=== PATIENT | male | born 2005 | race Caucasian/White ===

== ENCOUNTER 2024-06-12 16:10 | Emergency (ER) | payer BC, SELFPAY ==
[2024-06-12 16:17] VITALS: BP 132/90
--- NOTE | 2024-06-12 17:06 | ED.GENMED ---
History of Present Illness
General
Chief Complaint: Musculo-Skeletal Complaint
Source: patient
Exam Limitations: none
Time Seen by Provider: 06/12/24 16:58
Nursing documentation reviewed up to this point in time: agreed with
History of Present Illness
History of Present Illness:
Patient is a 18-year-old [id number] male who presents to the emergency department complaining of pain and swelling in his right hand and fingers especially the middle, ring and fifth finger. Patient denies any numbness or paresthesias.
Patient has difficulty moving them secondary to pain. Tetanus is up-to-date.
Past History
Past History
ED Past Medical History: Other (ERICH + panic disorder )
ED Past Surgical History: None
Social History
Tobacco: Former smoker
Alcohol: Occasional
Drug: None
Personal: Single
Living: with family
Review of Systems
Review of Systems
All Other Systems: Not applicable
Phy Exam
Physical Exam
Physical Exam:
Physical Exam
General: mild distress, alert and appropriate, well nourished, well hydrated
HENT: Normocephalic, supple
Eyes: Clear sclera, conjuctiva without injection
Neuro: Alert and oriented x 3, CN II - XII intact, no motor focality, no cerebellar dysfunction
Skin: no rash. Abrasion of the fifth, fourth and middle fingers on the right. In the area of the fractures but do not appear to communicate with the fractures.
Psychiatric: well kept. interactive and cooperative
Extremities: No cyanosis. Tenderness with swelling and ecchymosis of the right hand from the second to the fifth MCPs as well as the third, fourth and fifth fingers. Neurovascularly and tendons intact.
Scores
Heart Failure Risk
Heart Failure Risk Score: Not Applicable
Heart Score for Chest Pain Patients
STEMI patient?: Not applicable
Withdrawal Assessment of Alcohol
Withdrawal Assessment Completed?: Not applicable
Course
Orders/Labs/Results
Orders:
Orders
06/12/24 16:16
Hand, Right 3 View [CR Hand - Right Min 3 Views] Urgent
Comment:
Reason For Exam: pain
06/12/24 17:10
Splints/Slings/Crut- Treatment ONCE
Sling to: Right Arm
Location: Right
Type of Splint: Volar
Cephalexin Monohydrate [Keflex] 500 mg PO NOW STA
Oxycodone/Acetaminophen [Percocet 5/325] 1 tablet PO NOW STA
Vital Signs
Initial and Last Documented VS:
Initial Vital Signs
Temp Pulse Resp BP Pulse Ox
98.8 F 97 16 132/90 97
06/12/24 16:17 06/12/24 16:17 06/12/24 16:17 06/12/24 16:17 06/12/24 16:17
Last Documented Vital Signs
Temp Pulse Resp BP Pulse Ox
98.8 F 97 16 132/90 97
06/12/24 16:17 06/12/24 16:17 06/12/24 16:17 06/12/24 16:17 06/12/24 16:17
*Radiology
Radiology exam reviewed: preliminary read by ED provider (Fractures of the third and fourth fingers proximal phalanx)
*Pulse Oximetry
Patient hypoxic: no
*EKG
Interpreted by ED Provider?: NA
*Medical Staff Manager Interpretation
Rate: Medical Staff Manager- N/A
*Critical Care Note
Total Time (30-74mins, 75-104mins- exclusive of procedures): Not Applicable
ED Attending Note
-
Portions of this chart may have been created with voice recognition software.� Occasional wrong word or��sound alike� substitutions may have occurred due to the inherent limitations of voice recognition software.
Discharge Plan
Departure
Patient Disposition: Home (Routine Discharge)
Date of Disposition: 06/12/24
Time of Disposition: 17:32
Patient with high blood pressure during this ER visit?: No
Condition: Good
Covid-19: Not Applicable
Discharge Problem:
Fracture of phalanx of right ring finger, Fracture of phalanx of right middle finger
Instructions: How to Use a Shoulder Sling, Using Cold for Pain, Splint Care, Finger Fracture ED
Prescriptions:
New
cephalexin 500 mg capsule
500 mg PO BID 7 Days Qty: 14 0RF
oxycodone 5 mg tablet
5 mg PO Q4H PRN (Reason: Pain) Qty: 10 0RF
No Action
lorazepam [Ativan] 0.5 mg tablet
0.5 mg PO BID PRN (Reason: anxiety) Qty: 7 0RF
Referrals:
Mj Ruiz MD [Active] - Call in 1-3 days for appt
Katya Russ DO [Family Provider] - As needed
Interventions
Interventions:
*Risk Screen - Suicide Last Done: 06/12/24 16:17
*General Assessment Last Done: 06/12/24 16:17
*ED COVID-19 Vaccine History Last Done: 06/12/24 16:17
Discharge Date and Time
Print Language: [id number]
[2024-06-12] MEDS: PERCOCET 5/325 1 TABLET PO (17:30)
[2024-06-12] MEDS: KEFLEX 500 MG PO (17:30)
== END 2024-06-12 18:10 | disposition home or self-care (01) ==
LOC: EMR 16:10
PROVIDERS: EMERGENCY PHYSICIAN Emergency Medicine; FAMILY PHYSICIAN Family Medicine
DX: S62.612A Displaced fracture of proximal phalanx of right middle finger, initial encounter for closed fracture (principal); S62.614A Displaced fracture of proximal phalanx of right ring finger, initial encounter for closed fracture; X58.XXXA Exposure to other specified factors, initial encounter; Z87.891 Personal history of nicotine dependence
CPT/HCPCS: 29125; 99283; 73130